=== PATIENT | female | born 1970 | race Two or more races ===

== ENCOUNTER 2016-06-26 06:00 | Day surgery (SDC) | payer MEDICAID, OTHER ==
[2016-06-26] VITALS (11 sets, daily range): BP systolic 98–114; BP diastolic 58–75; PULSE 75–98; RESP 14–23; Ht 165.1 cm; Wt 57.6 kg
[~2016-06-26] VITALS: Ht 165.1 cm; Wt 57.6 kg
[~2016-06-26 06:00] MED LIST: AMOX500C6; LACTATED RINGER'S 1,000 ML IV SCH
[2016-06-26 06:48] LABS: BASOPHIL # 0.1 10^3/ul (0.0-0.1); BASOPHILS % 1.7 % (0.0-2.0); EOSINOPHILS # 0.4 10^3/ul (0.0-0.5); EOSINOPHILS % 6.8 % (0.0-7.0); HEMATOCRIT 29.8 % (37.0-47.0); HEMOGLOBIN 9.8 g/dl (12.0-16.0); LYMPHOCYTES # 1.4 10^3/ul (0.8-2.9); MEAN CORPUSCULAR HEMOGLOBIN 24.4 pg (29.0-33.0); MEAN CORPUSCULAR HGB CONC 32.8 g/dl (32.0-37.0); MEAN CORPUSCULAR VOLUME 74.4 fl (82.0-101.0); MEAN PLATELET VOLUME 8.1 fl (7.4-10.4); MONOCYTE # 0.5 10^3/ul (0.3-0.9); MONOCYTES % 9.3 % (0.0-11.0); NEUTROPHIL # 2.9 10^3/ul (1.6-7.5); NEUTROPHILS % 55.2 % (39.0-77.0); PLATELET COUNT 415 10^3/UL (140-440); RED CELL DISTRIBUTION WIDTH 15.1 % (11.5-14.5); UNCORRECTED WBC 5.2 10^3/ul (4.8-10.8); WHITE BLOOD COUNT 5.2 10^3/ul (4.8-10.8)
[2016-06-26 06:57] LABS: CONDITION 1; LH ANALYZER COMMENTS 1
[2016-06-26] MEDS ORDERED: CEFAZOLIN 1 GM INJ ONE (07:54)
[2016-06-26] MEDS ORDERED: LIDOCAINE 100 MG SYRINGE ONE (07:54)
[2016-06-26] MEDS ORDERED: SUCCINYLCHOLINE CHLORIDE 100 MG/5 ML SYG IV ONE (07:54)
[2016-06-26] MEDS ORDERED: PROPOFOL 20 ML ONE (07:54)
[2016-06-26] MEDS ORDERED: MIDAZOLAM 1 MG/ML 2 ML INJ ONE (07:56)
[2016-06-26] MEDS ORDERED: FENTAnyl 50 MCG/ML VIAL ONE (07:56)
[2016-06-26] MEDS ORDERED: DEXAMETHASONE 4 MG/ML 1 ML INJ ONE (07:57)
[2016-06-26] MEDS ORDERED: ONDANSETRON 4 MG INJ ONE (07:57)
--- NOTE | 2016-06-26 08:29 | PREOPHP ---
DATE OF ADMISSION: 06/26/2016 HISTORY OF PRESENT ILLNESS: Ms. Nohemi Arguello is a 45-year-old 1, para 1 with abnor mal uterine bleeding. The patient reports changing 10 pads per day. She has a history of cervical stenosis, and after explaining the risks, benefits, and alternatives, the patient agrees for a D and C with a hysteroscopic endometrial hydrothermal ablation. PAST MEDICAL HISTORY: None. MEDICATIONS: None. PAST SURGICAL HISTORY: x1 . OBSTETRICAL HISTORY: x1 section. GYNECOLOGIC HISTORY: [age], regular periods, lasting 10 days, heavy. Denies any sexually transmit carmen diseases. Sexually active with 1 partner. SOCIAL HISTORY: Denies any smoking, drugs, or alcohol. FAMILY HISTORY: None. PHYSICAL EXAMINATION: HEENT: Within normal. LUNGS: CTA bilateral. CARDIOVASCULAR: S1, S2, regular rate, rhythm. ABDOMEN: Soft, nontender, negative distention. EXTREMITIES: Negative edema. No calf tenderness. PELVIC: Vaginal: Normal external genitalia. Cervix: Positive cervical stenosis, negative lesions . Adnexa: Negative mass, nontender bilateral. Fundus within normal limits. The patient had an endometrial biopsy performed on 09/27/2015 which showed endometrial biopsy, endoc ervical squamous metaplasia, and very rare tiny fragments of inactive endometrial epithelium insuffi cient for definitive diagnosis of endometrial architecture, endocervical curettage, endocervix showi ng no specific pathology changes. The patient had an ultrasound on 09/02/2015 showing the uterus 10 x 5 x 6 cm in size with thickening of the endometrial canal to 1.6 cm. No definite uterine mass is identified. The right ovary measures 3.4 x 2.8 x 2.2 cm with approximately a 2 cm cyst, most likel y follicular. The left ovary is 4.4 x 3 x 3.2 cm with a 2.2 x 2.3 x 1.9 cm cyst, most likely follic ular. Impression: Thickening of the endometrial canal measuring 1.6 cm, bilateral simple ovarian cy st, most likely follicular. Pap smear performed in December 2012. Pap was satisfactory. ASSESSMENT: A 45-year-old 1, para 1 with abnormal uterine bleeding, cervical stenosis, insu fficient endometrial biopsy. PLAN: Consent for a dilation and curettage with hysteroscopic endometrial hydrothermal ablation. R isks, benefits, and alternatives explained. All questions were answered. Dictated By: FORTINO SHCULTZ/WICHO Conf#: [id number] DID#: [id number]
[2016-06-26] MEDS ORDERED: EPHEDrine SULFATE 50 MG/5 ML SYG IV PRN (09:00)
[2016-06-26] MEDS ORDERED: MIDAZOLAM 1 MG/ML 2 ML INJ IV PRN (09:00)
[2016-06-26] MEDS ORDERED: KETOROLAC 30 MG INJ ONE (09:00)
[2016-06-26] MEDS ORDERED: ONDANSETRON 4 MG INJ IV PRN (09:00)
[2016-06-26] MEDS ORDERED: MEPERIDINE 25 MG INJ IV PRN (09:00)
[2016-06-26] MEDS ORDERED: LABETALOL HCL 20MG INJ IV PRN (09:00)
[2016-06-26] MEDS ORDERED: HYDROmorphONE (0.2 MG/ML) 10ML SYG IV PRN ×3 (09:00)
[2016-06-26] MEDS ORDERED: hydrALAzine 20 MG INJ IV PRN (09:00)
[2016-06-26] MEDS ORDERED: FENTAnyl 50 MCG/ML VIAL IV PRN ×3 (09:00)
[2016-06-26] MEDS ORDERED: TRIMETHOBENZAMIDE 100 MG/ML VIAL IM PRN (09:00)
[2016-06-26] MEDS ORDERED: DIPHENHYDRAMINE 50 MG INJ IV PRN (09:00)
--- NOTE | 2016-06-26 10:51 | OPR ---
DATE OF OPERATION: 06/26/2016 PREOPERATIVE DIAGNOSIS: A 45-year-old 1, para 1 with abnormal uterine bleeding, thickened e ndometrium, cervical stenosis, unsatisfactory endometrial biopsy in office. POSTOPERATIVE DIAGNOSIS: A 45-year-old 1, para 1 with abnormal uterine bleeding, thickened endometrium, cervical stenosis, unsatisfactory endometrial biopsy in office. OPERATION PERFORMED: Dilation and curettage with diagnostic hysteroscopy. SURGEON: Fortino Nuñez MD LEADER ASSEMBLER: None. FINDINGS: Bimanual 8 weeks' size uterus, position anteverted. Positive cervical stenosis. Hysteros copic view of the uterus marked for moderate adhesions. Ostia not visualized. ESTIMATED BLOOD LOSS: 10 mL. SPECIMEN: Endometrial curettage. COMPLICATIONS OF PROCEDURE: None. TYPE OF ANESTHESIA: General. DESCRIPTION OF PROCEDURE: After explaining the risks, benefits and alternatives, the patient had co nsent signed in chart, the patient was taken to the operating room where general anesthesia was obta ined without difficulty. She was then placed under anesthesia and found to have an 8 weeks' size ut erus with normal adnexa. She was then placed in a dorsal lithotomy position and prepared and draped in a sterile fashion. A heavy weighted speculum was then placed in the patient's vagina and the an terior lip of the cervix was grasped with a single-tooth tenaculum. The cervix was then gently dila carmen and a hysteroscope was then advanced into the intrauterine cavity and findings as noted above. The hysteroscope was then removed and a sharp curettage was performed and specimen was sent to patho logy. At this point, the procedure was terminated. The tenaculum was removed and the heavy weighte d speculum was also removed. Good hemostasis was noted. Sponge, lap and needle counts were correct x2. The patient was taken to PACU and in stable condition. Dictated By: FORTINO SCHULTZ/WICHO Conf#: [id number] DID#: [id number]
== END 2016-06-26 10:38 | disposition home or self-care (01) ==
LOC: SDS 06:00
PROVIDERS: ATTEND Obstetrics & Gynecology
DX: N72 Inflammatory disease of cervix uteri (principal)
CPT/HCPCS: 58558; 84703; 85025; 86850; 86900; 86901; 88305; J0330; J0690; J1100; J1170; J1885; J2001; J2250; J2405; J3010; Z7512; Z7610